=== PATIENT | female | born 1955 | race Caucasian/White ===

== ENCOUNTER 2017-07-14 10:20 | Inpatient (IN) ==
--- NOTE | 2017-07-14 12:05 | Emergency Department Note ---
Disposition Clinical Impression: Elevated blood pressure reading Headache Qualifiers: Headache type: unspecified Headache chronicity pattern: unspecified pattern Intractability: not intractable Qualified Code(s): R51 - Headache Chest pain Qualifiers: Chest pain type: unspecified Qualified Code(s): R07.9 - Chest pain, unspecified Disposition: Admitted As Inpatient Condition: Fair Referrals: Eliel Lomeli MD [Primary Care Provider] - Forms: ED Satisfaction Letter Time of Disposition: 13:51 General Adult HPI - General Chief complaint: ED Headache Stated complaint: "sent from ENT high BP" Time Seen by Provider: 07/14/17 10:55 Source: patient Mode of arrival: ambulatory Limitations: no limitations Nursing Notes Reviewed: Yes Vital Signs Reviewed: Yes - History of Present Illness HPI Narrative: 61-year-old female with history of hypertension and recent epistaxis presents for evaluation of elevated blood pressure. Patient was sent over from the ENT office due to hypertension. Patient was noted to be 190 systolic. Patient states she has been out of her blood pressure medication over the past week and recently got the prescription filled yesterday. Patient's had a couple doses of lisinopril. Patient also notes that she has been having constant headaches as well as right eye pain with blurry vision. Patient denies history of glaucoma or diabetes. Patient states her headache is primarily around her for head and her eye. Patient denies any nausea or vomiting. Patient states that she has not seen her primary care doctor for a while. Notes She has an appointment in October. Patient also notes she has had some epigastric pain over the past couple days which currently is resolved. Pain Scale: 7 - Related Data Home Medications Medication Instructions Recorded Confirmed Acetaminophen [Tylenol] 325 - 650 mg PO TID PRN 12/04/15 07/14/17 Cyclobenzaprine [Flexeril] 10 mg PO HS PRN 12/04/15 07/14/17 Losartan [Cozaar] 25 mg PO DAILY 12/04/15 07/14/17 Escitalopram [Lexapro] 10 mg PO DAILY 12/19/15 07/14/17 Gabapentin [Neurontin] 300 mg PO HS 12/19/15 07/14/17 Dexlansoprazole [Dexilant] 60 mg PO DAILY 02/07/16 07/14/17 Metoprolol [Lopressor] 12.5 mg PO BID 02/07/16 07/14/17 Previous Rx's Medication Instructions Recorded Ferrous Sulfate 325 mg PO BIDWM #60 tablet 12/21/15 Allergies Allergy/AdvReac Type Severity Reaction Status Date / Time No Known Allergies Allergy Verified 07/10/17 06:36 All systems ED: reviewed and negative except as stated. Constitutional: Denies: fever Cardiovascular: Reports: chest pain Respiratory: Denies: cough, dyspnea Gastrointestinal: Denies: abdominal pain, nausea, vomiting Past Medical History - Past Medical History Source: patient Medical history: Reports: arthritis, GERD, hypertension Surgical history: Reports: knee replacement Psychiatric history: Reports: anxiety, depression - Social History Smoking Status: Never smoker Smokeless Tobacco Status: No Alcohol use: Reports: none Drug use: Reports: none Physical Exam - General Limitations: no limitations General appearance: alert, in no apparent distress - Head Head exam: atraumatic, normocephalic, normal inspection - Eye Eye exam: Present: normal appearance, PERRL, EOMI, nystagmus (BILATERAL HORIZONTAL NYSTAGMUS). Absent: miosis, mydriasis - ENT ENT exam: normal exam - Neck Neck exam: Present: normal inspection - Chest Chest inspection: Present: normal inspection, symmetric chest wall rise - Respiratory Respiratory exam: Present: normal lung sounds bilaterally. Absent: respiratory distress - Cardiovascular Cardiovascular exam: Present: regular rate, normal rhythm. Absent: systolic murmur - Abdominal Exam Abdominal exam: Present: soft, Non-Tender - Extremities Exam Extremities exam: Present: normal inspection. Absent: pedal edema - Back Exam Back exam: Present: normal inspection - Neurological Exam Neurological exam: Present: alert, oriented X3, CN II-XII intact - Expanded Neurological Exam Patient oriented to: Present: person, place, time Speech: Present: fluid speech Cranial nerves: EOM function (II, III, IV, ): Normal, facial sensation (V): Normal, facial palsy (VII): Normal, spinal accessory function (XI): Normal, tongue deviation (XII): Normal Motor strength - LUE: 5/5 Motor strength - RUE: 5/5 Motor strength - LLE: 5/5 Motor strength - RLE: 5/5 Coma Scale Eye Opening: Spontaneous Coma Scale Motor Response: Obeys Commands Coma Scale Verbal Response: Oriented Coma Scale Total: 15 - Skin Skin exam: Present: warm, dry, intact, normal color Course Course Narrative: Patient seen and examined. Patient's in no acute distress. Patient will get basic labs as well as screening cardiopulmonary processes EKG, chest x-ray troponin. Patient also get a head CT. Concerns the patient's had uncontrolled hypertension recently. Patient did not get any recent evaluation during her prior ED visit. Disposition pending. Vital Signs Temperature 97.4 F L 07/14/17 10:21 Pulse Rate 81 07/14/17 10:21 Respiratory Rate 18 07/14/17 10:21 Blood Pressure 163/90 07/14/17 10:21 O2 Sat by Pulse Oximetry 97 07/14/17 10:21 Temperature 97.4 F L 07/14/17 10:21 Pulse Rate 81 07/14/17 10:21 Respiratory Rate 18 07/14/17 10:21 Blood Pressure 163/90 07/14/17 10:21 O2 Sat by Pulse Oximetry 97 07/14/17 10:21 Oxygen Delivery Oxygen Delivery Room Air Medical Decision Making - MDM Narrative Medical decision making narrative: 61-year-old female persists for evaluation of elevated blood pressure. Secondarily the patient's been cleaning of chest pain over the past couple days. Currently asymptomatic at time of evaluation. Patient's also been having a headache as well as blurry vision out of her right eye. Patient has no specific neurologic deficits. Patient's head CT shows white matter ischemic changes. Patient was given aspirin. Patient's blood pressure improved during the ED course without any specific interventions. Patient had basic lab work obtained troponins negative nonischemic EKG. Concerns the patient has not had a thorough evaluation for neurologic complaints and possible TIA. Patient's NIH of 0. Patient's will be admitted to the hospital service for optimize medical management further evaluation of CVA TIA and chest pain. - Lab Data Lab results reviewed: Yes I reviewed the patient's lab results. Result diagrams: 07/14/17 12:51 07/14/17 12:51 Lab Results 07/14/17 07/14/17 07/14/17 Range/Units 12:51 12:51 12:51 WBC 6.9 (4.3-11.1) K/mcL RBC 4.82 (3.82-4.97) M/mcL Hgb 14.1 (11.5-15.4) g/dL Hct 43.1 (35.3-44.9) % MCV 89.4 (83.0-100.0) fL MCH 29.3 (28.0-33.3) pg MCHC 32.7 (31.6-35.5) g/dL RDW 14.3 (11.5-14.5) % Plt Count 271 (140-400) K/mcL MPV 9.3 L (9.4-12.4) fL Immature Gran % 0.3 (0-4) % Seg Neutrophils % 75.1 % Lymphocytes % 16.7 % Monocytes % 4.9 % Eosinophils % 2.3 % Basophils % 0.7 % Neutrophils # 5.2 (1.6-8.9) K/mcL Lymphocytes # 1.2 (0.6-4.6) K/mcL Monocytes # 0.3 (0.0-1.3) K/mcL Eosinophils # 0.2 (0.0-0.6) K/mcL Basophils # 0.1 (0.0-0.2) K/mcL PT 11.3 (9.4-12.1) Seconds INR 1.1 Sodium 137 (136-145) mEq/L Potassium 4.1 (3.5-5.1) mEq/L Chloride 102 (98-107) mEq/L Carbon Dioxide 30 H (23-29) mEq/L BUN 15 (8-23) mg/dL Creatinine 0.84 (0.60-1.20) mg/dL Est GFR ( Amer) > 60 (> 60) Est GFR (Non-Af Amer) > 60 (> 60) BUN/Creatinine Ratio 18 (6-26) Glucose 108 H (70-105) mg/dL Calculated Osmolality 285 (280-300) Calcium 10.0 (8.6-10.3) mg/dL Troponin I (< 0.04) ng/mL B-Natriuretic Peptide (Less than 100) pg/mL 07/14/17 07/14/17 Range/Units 12:51 12:51 WBC (4.3-11.1) K/mcL RBC (3.82-4.97) M/mcL Hgb (11.5-15.4) g/dL Hct (35.3-44.9) % MCV (83.0-100.0) fL MCH (28.0-33.3) pg MCHC (31.6-35.5) g/dL RDW (11.5-14.5) % Plt Count (140-400) K/mcL MPV (9.4-12.4) fL Immature Gran % (0-4) % Seg Neutrophils % % Lymphocytes % % Monocytes % % Eosinophils % % Basophils % % Neutrophils # (1.6-8.9) K/mcL Lymphocytes # (0.6-4.6) K/mcL Monocytes # (0.0-1.3) K/mcL Eosinophils # (0.0-0.6) K/mcL Basophils # (0.0-0.2) K/mcL PT (9.4-12.1) Seconds INR Sodium (136-145) mEq/L Potassium (3.5-5.1) mEq/L Chloride (98-107) mEq/L Carbon Dioxide (23-29) mEq/L BUN (8-23) mg/dL Creatinine (0.60-1.20) mg/dL Est GFR ( Amer) (> 60) Est GFR (Non-Af Amer) (> 60) BUN/Creatinine Ratio (6-26) Glucose (70-105) mg/dL Calculated Osmolality (280-300) Calcium (8.6-10.3) mg/dL Troponin I < 0.03 (< 0.04) ng/mL B-Natriuretic Peptide 118 H (Less than 100) pg/mL - Radiology Data Radiology results reviewed: Yes I reviewed the patient's radiology results. Head CT 07/14/17 12:01 IMPRESSION: No acute intracranial abnormality. Mild chronic small vessel white matter ischemic changes. D/ / Jose Luis Plasencia MD / Jose Luis Plasencia MD Interpreting Provider: Jose Luis Plasencia MD Chest X-Ray 07/14/17 12:06 IMPRESSION: No acute cardiopulmonary disease. Retrocardiac opacity compatible with hiatal hernia. D/ / Xenia Norton MD / Xenia Norton MD Interpreting Provider: Xenia Norton MD - EKG Data EKG #1 EKG attestation: Yes I reviewed and interpreted this EKG. EKG shows normal: sinus rhythm Rate: normal Rhythm: NSR [place]/QRS: normal Interpretation: no acute changes, nonspecific ST-T wave changes S.B.A.RLana - S.Jen.AEmma Situation: Demographics Background: Presenting Complaint Assessment: Vital Signs, Patient/Family Expectation Recommendation: Barrier(s) to disposition, Recommendation based on pending studies, treatments, or consults S.B.A.Destinee Report Given to: Dr. Darinel Fajardo Repor Time: 14:22
--- NOTE | 2017-07-14 13:07 | Emergency Department Note ---
Disposition Clinical Impression: Elevated blood pressure reading Disposition: Admitted As Inpatient Referrals: Eliel Lomeli MD [Primary Care Provider] - Forms: ED Satisfaction Letter General Adult HPI - General Chief complaint: ED Headache Stated complaint: "sent from ENT high BP" Time Seen by Provider: 07/14/17 10:55 Source: patient Mode of arrival: ambulatory Limitations: no limitations - History of Present Illness Pain Scale: 7 - Related Data Home Medications Medication Instructions Recorded Confirmed Acetaminophen [Tylenol] 325 - 650 mg PO TID PRN 12/04/15 02/07/16 Cyclobenzaprine [Flexeril] 10 mg PO HS PRN 12/04/15 02/07/16 Losartan [Cozaar] 25 mg PO DAILY 12/04/15 02/07/16 Omeprazole [PriLOSEC] 40 mg PO BID 12/04/15 02/07/16 Escitalopram [Lexapro] 10 mg PO DAILY 12/19/15 02/07/16 Gabapentin [Neurontin] 300 mg PO HS 12/19/15 02/07/16 Dexlansoprazole [Dexilant] 60 mg PO DAILY 02/07/16 02/07/16 Metoprolol [Lopressor] 12.5 mg PO BID 02/07/16 02/07/16 Previous Rx's Medication Instructions Recorded Ferrous Sulfate 325 mg PO BIDWM #60 tablet 12/21/15 Mupirocin [Bactroban Oint] 1 appl TP BID #22 g 02/20/16 cephALEXin [Keflex] 500 mg PO TID #30 capsule 02/20/16 cephALEXin [Keflex] 500 mg PO QID #15 capsule 07/10/17 Allergies Allergy/AdvReac Type Severity Reaction Status Date / Time No Known Allergies Allergy Verified 07/10/17 06:36 Constitutional: Denies: fever Cardiovascular: Reports: chest pain Respiratory: Denies: cough, dyspnea Gastrointestinal: Denies: abdominal pain, nausea, vomiting Past Medical History - Past Medical History Medical history: Reports: arthritis, GERD, hypertension Surgical history: Reports: knee replacement Psychiatric history: Reports: anxiety, depression - Social History Smoking Status: Never smoker Smokeless Tobacco Status: No Alcohol use: Reports: none Drug use: Reports: none Physical Exam - General Limitations: no limitations General appearance: alert, in no apparent distress Course Vital Signs Temperature 97.4 F L 07/14/17 10:21 Pulse Rate 81 07/14/17 10:21 Respiratory Rate 18 07/14/17 10:21 Blood Pressure 163/90 07/14/17 10:21 O2 Sat by Pulse Oximetry 97 07/14/17 10:21 Temperature 97.4 F L 07/14/17 10:21 Pulse Rate 81 07/14/17 10:21 Respiratory Rate 18 07/14/17 10:21 Blood Pressure 163/90 07/14/17 10:21 O2 Sat by Pulse Oximetry 97 07/14/17 10:21 Oxygen Delivery Oxygen Delivery Room Air Attestation Statement - Attestation Attestation: I examined this patient and my medical decision-making was reviewed with the Resident Physician. I agree with the documented findings, disposition and treatment plan as described except to the extent set forth below. 61 year old female prsentse to us from the ENT office for elevated blood pressures. She was 180/90s at the ENT office and is currently 160s/70s and states that she has been experiencining intermittment chest pain with exertional d yspnea and most recently developed a headache with blurrinesss to her right eye. Bedside US of the right eye shows intact retina and no papillaedema. We will contineu with HTN workup and admit to medicine.
[2017-07-14 13:13] LABS: Basophils # 0.1 K/mcL (0.0-0.2); Basophils % 0.7 %; Eosinophils # 0.2 K/mcL (0.0-0.6); Eosinophils % 2.3 %; Hematocrit 43.1 % (35.3-44.9); Hemoglobin 14.1 g/dL (11.5-15.4); Immature Granulocytes % 0.3 % (0-4); Lymphocytes # 1.2 K/mcL (0.6-4.6); Lymphocytes % 16.7 %; Mean Corpuscular HGB Conc 32.7 g/dL (31.6-35.5); Mean Corpuscular Hemoglobin 29.3 pg (28.0-33.3); Mean Corpuscular Volume 89.4 fL (83.0-100.0); Mean Platelet Volume 9.3 fL (9.4-12.4); Monocytes # 0.3 K/mcL (0.0-1.3); Monocytes % 4.9 %; Neutrophils # 5.2 K/mcL (1.6-8.9); Platelet Count 271 K/mcL (140-400); Red Blood Count 4.82 M/mcL (3.82-4.97); Red Cell Distribution Width 14.3 % (11.5-14.5); Segmented Neutrophils % 75.1 %
[2017-07-14 13:22] LABS: INR 1.1; Prothrombin Time 11.3 Seconds (9.4-12.1)
[2017-07-14 13:30] LABS: BUN/Creatinine Ratio 18 (6-26); Blood Urea Nitrogen 15 mg/dL (8-23); Carbon Dioxide 30 mEq/L (23-29); Chloride 102 mEq/L (98-107); Glucose 108 mg/dL (70-105); Osmolality,Calculated 285 (280-300); Potassium 4.1 mEq/L (3.5-5.1); Sodium 137 mEq/L (136-145); eGFR For African Americans > 60 (> 60); eGFR For Non-African Americans > 60 (> 60)
[2017-07-14] MEDS ORDERED: Aspirin 81 MG TAB.CHEW PO ONE (14:17)
[2017-07-14] MEDS ORDERED: cloNIDine HCl 0.1 MG TABLET PO ONE (14:25)
[2017-07-14] MEDS ORDERED: Naloxone 0.4 MG/ML INJ IVP PRN (15:13)
[2017-07-14] MEDS ORDERED: niCARdipine 40 MG/200 ML MLS IVC SCH (15:15)
--- NOTE | 2017-07-14 15:21 | Internal Med History&Physical ---
<Elisa Mclean - Last Filed: 07/14/17 15:54> Date of Encounter: 07/14/17 Time of Encounter: 15:17 Internal Medicine - H&P: HPI Admitted From: Home Plans for Post Hospital Care: Home History of present illness: 61-year-old female with history of hypertension and recent epistaxis presents for evaluation of elevated blood pressure. Patient was sent over from the ENT office due to hypertension. Patient was noted to be 190 systolic. Patient states she has been out of her blood pressure medication over the past week and recently got the prescription filled yesterday. Patient's had a couple doses of lisinopril. Patient also notes that she has been having constant headaches as well as right eye pain with blurry vision. Patient denies history of glaucoma or diabetes. Patient states her headache is primarily around her for head and her eye. Patient denies any nausea or vomiting. Patient states that she has not seen her primary care doctor for a while. Notes She has an appointment in October. Patient also notes she has had some epigastric pain over the past couple days which currently is resolved. Past Med Surg Social Fam HX - Past Medical History Medical history: arthritis, GERD, hypertension Psychiatric history: anxiety, depression - Past Surgical History Surgical History: knee replacement - Social History Smoking Status: Never smoker Smokeless Tobacco Status: No Alcohol use: none Drug use: none - Family History Mother Family Member Ethnicity: Non- Living Status: Hx Family Cardiac Disorders: Yes Hx Family Respiratory Disorders: No Hx Family Cancer: No Hx Family GI Disorders: No Hx Family Endocrine Disorder: No Internal Medicine - H&P: Meds Acetaminophen [Tylenol] 325 - 650 mg PO TID PRN 12/04/15 [History] Cyclobenzaprine [Flexeril] 10 mg PO HS PRN 12/04/15 [History] Losartan [Cozaar] 25 mg PO DAILY 12/04/15 [History] Escitalopram [Lexapro] 10 mg PO DAILY 12/19/15 [History] Gabapentin [Neurontin] 300 mg PO HS 12/19/15 [History] Ferrous Sulfate 325 mg PO BIDWM #60 tablet 12/21/15 [Rx] Dexlansoprazole [Dexilant] 60 mg PO DAILY 02/07/16 [History] Metoprolol [Lopressor] 12.5 mg PO BID 02/07/16 [History] 3 Allergy/AdvReac Type Severity Reaction Status Date / Time No Known Allergies Allergy Verified 07/10/17 06:36 All Systems PM: A 10-system review of systems was performed and is negative for pertinent findings except as documented above in the HPI. - Constitutional Constitutional: no chills, no fever(s), no night sweats - EENT Eyes: as per HPI, no change in vision, no discharge, no pain, no photophobia Ears: no ear discharge, no ear pain, no tinnitus Nose, mouth and throat: no dysphagia, no nasal discharge, no neck pain, no sore throat - Cardiovascular Cardiovascular ROS IM: no chest pain, no diaphoresis, no dyspnea, no lightheadedness, no palpitations, no syncope - Respiratory Respiratory: no cough, no dyspnea, no wheezing, no excessive phlegm production - Gastrointestinal Gastrointestinal: no abdominal pain, no diarrhea, no hematemesis, no hematochezia, no melena, no nausea, no vomiting - Genitourinary Genitourinary: no change in urinary stream, no dysuria, no flank pain, no hematuria - Musculoskeletal Musculoskeletal ROS IM: no numbness, no tingling - Integumentary Integumentary IM: no rash, no unusual bruising - Neurological Neurological ROS: no confusion, no convulsions, no focal weakness, no numbness, no tingling, no tremor(s) - Hematologic/Lymphatic Hematologic/Lymphatic: no easy bruising - Constitutional Vitals: Temp Pulse Resp BP Pulse Ox 97.4 F L 89 16 216/100 98 07/14/17 10:21 07/14/17 14:26 07/14/17 14:26 07/14/17 14:26 07/14/17 14:26 General appearance: Present: A&O X 2 - Head Head exam: Present: atraumatic, normocephalic - Eye Eye exam: Present: PERRL, conjuntiva pink, sclera anicteric Pupils: Present: PERRL - Neck Neck exam general surgery: Present: supple, trachea midline. Absent: lymphadenopathy - Respiratory Respiratory exam: Present: CTAB. Absent: accessory muscle use, rales, rhonchi, wheezes - Cardiovascular Cardiovascular exam: Present: RRR, +S1, +S2. Absent: diastolic murmur, gallop, rubs, systolic murmur - GI/Abdominal GI/Abdominal exam: Present: normal bowel sounds, soft, no peritoneal signs. Absent: distended, tenderness - Extremities Exam Extremities exam: Present: warm, radial pulses palpable and symmetrical. Absent : calf tenderness, cyanotic, pedal edema - Neurological Exam Neurological exam: Present: CN II-XII intact, oriented X3, no focal deficits. Absent: pronater drift, facial droop, speech deficit - Skin Skin exam: Present: dry, intact Internal Med - H&P Results - Labs CBC & Chem 7: 07/14/17 12:51 07/14/17 12:51 Labs: Short CBC 07/14/17 Range/Units 12:51 WBC 6.9 (4.3-11.1) K/mcL Hgb 14.1 (11.5-15.4) g/dL Hct 43.1 (35.3-44.9) % Plt Count 271 (140-400) K/mcL Neutrophils # 5.2 (1.6-8.9) K/mcL BMP 07/14/17 12:51 Sodium 137 Potassium 4.1 Chloride 102 Carbon Dioxide 30 H BUN 15 Creatinine 0.84 Glucose 108 H Calcium 10.0 Cardiac Enzymes 07/14/17 Range/Units 12:51 Troponin I < 0.03 (< 0.04) ng/mL - Impressions ITS Impressions Head CT 07/14/17 12:01 IMPRESSION: No acute intracranial abnormality. Mild chronic small vessel white matter ischemic changes. D/ / Jose Luis Plasencia MD / Jose Luis Plasencia MD Interpreting Provider: Jose Luis Plasencia MD Chest X-Ray 07/14/17 12:06 IMPRESSION: No acute cardiopulmonary disease. Retrocardiac opacity compatible with hiatal hernia. D/ / Xenia Norton MD / Xenia Norton MD Interpreting Provider: Xenia Norton MD - Assessment and plan (1) Hypertensive emergency Current Visit: Yes Status: Acute Assessment and plan: - SBP at ED >210, also c/o headcahe and nose bleeding. - received one dose of clonidine at ED, will start on cardene drip, continue home BP meds and adjust dose to wean off Cardene drip. - renal artery doppler to r/o stenosis. TSH, free cortisol and metanephrine ordered to r/o other cause of secondary HTN. (2) Epistaxis Current Visit: Yes Status: Acute Assessment and plan: - packed at ENT office, control BP. (3) Headache Current Visit: Yes Status: Acute Assessment and plan: - high BP related, control BP as above. Qualifiers: Headache type: unspecified Headache chronicity pattern: unspecified pattern Intractability: not intractable Qualified Code(s): R51 - Headache - Time Spent With Patient Total time spent is greater than 50% in coordination of care (as documented) at patient's floor/unit and/or counseling patient: Greater than 35 minutes <Filippo House - Last Filed: 07/14/17 18:34> Date of Encounter: 07/14/17 Internal Medicine - H&P: HPI History of present illness: Ms. Berman is a 61 year old female All Systems PM: A 10-system review of systems was performed and is negative for pertinent findings except as documented above in the HPI. - Constitutional Vitals: Temp Pulse Resp BP Pulse Ox 97.4 F L 84 18 177/89 97 07/14/17 10:21 07/14/17 17:37 07/14/17 17:42 07/14/17 17:42 07/14/17 17:37 Internal Med - H&P Results - Labs CBC & Chem 7: 07/14/17 12:51 07/14/17 12:51 - Attending Attestation I examined this patient and my medical decision-making was reviewed with the Resident Physician. I agree with the documented findings, disposition and treatment plan as described except to the extent set forth below. - Time Spent With Patient Total time spent is greater than 50% in coordination of care (as documented) at patient's floor/unit and/or counseling patient:
[2017-07-14 16:08] LABS: Thyroid Stimulating Hormone 2.272 mcIU/mL (0.340-5.600)
[2017-07-14] MEDS: Acetaminophen 325 MG TABLET PO PRN ×2 (18:21→22:30)
[2017-07-14] MEDS: Gabapentin 300 MG CAPSULE PO SCH (22:30)
[2017-07-15 06:56] LABS: BUN/Creatinine Ratio 18 (6-26); Blood Urea Nitrogen 14 mg/dL (8-23); Calcium 9.4 mg/dL (8.6-10.3); Carbon Dioxide 24 mEq/L (23-29); Chloride 106 mEq/L (98-107); Glucose 124 mg/dL (70-105); Osmolality,Calculated 282 (280-300); Potassium 4.3 mEq/L (3.5-5.1); Sodium 135 mEq/L (136-145); eGFR For African Americans > 60 (> 60); eGFR For Non-African Americans > 60 (> 60)
[2017-07-15 07:06] LABS: Basophils % 0.6 %; Eosinophils # 0.1 K/mcL (0.0-0.6); Eosinophils % 2.2 %; Hematocrit 39.5 % (35.3-44.9); Hemoglobin 12.8 g/dL (11.5-15.4); Immature Granulocytes % 0.2 % (0-4); Lymphocytes # 1.3 K/mcL (0.6-4.6); Mean Corpuscular HGB Conc 32.4 g/dL (31.6-35.5); Mean Corpuscular Hemoglobin 29.6 pg (28.0-33.3); Mean Corpuscular Volume 91.4 fL (83.0-100.0); Mean Platelet Volume 9.8 fL (9.4-12.4); Monocytes # 0.4 K/mcL (0.0-1.3); Monocytes % 7.7 %; Neutrophils # 3.2 K/mcL (1.6-8.9); Platelet Count 252 K/mcL (140-400); Red Blood Count 4.32 M/mcL (3.82-4.97); Red Cell Distribution Width 14.3 % (11.5-14.5); Segmented Neutrophils % 63.3 %
--- NOTE | 2017-07-15 14:48 | Internal Med Progress Note ---
Date of Encounter: 07/15/17 Time of Encounter: 14:40 - Assessment and plan (1) Hypertensive emergency Current Visit: Yes Status: Acute Assessment and plan: - Presented with headache and nosebleeding, was found BP significantly elevated with SBP more than 220. - Unclear the etiology, TSH and free cortisol were normal. Serum metanephrine result pending. - Occurred after ENT placed nasal packing, suspected vasoconstrict agent such as Afrin was used to control epistaxis, which could cause acute elevated blood pressure. - Treated as hypertensive emergency with Cardene drip, drip off this morning. - Losartan and metoprolol home dose doubled. - BP well controlled now with SBP between 120-150. - If remain controlled, will dc in am. (2) Epistaxis Current Visit: Yes Status: Acute Assessment and plan: - packed at ENT office. No bleeding now. (3) Headache Current Visit: Yes Status: Resolved Qualifiers: Headache type: unspecified Headache chronicity pattern: unspecified pattern Intractability: not intractable Qualified Code(s): R51 - Headache - Time Spent With Patient Total time spent is greater than 50% in coordination of care (as documented) at patient's floor/unit and/or counseling patient: Greater than 35 minutes - Subjective Interval history: resting in bed, has no complaints. No headache or nose bleeding. - Constitutional Vitals: Temp Pulse Resp BP Pulse Ox 97.6 F 69 16 125/81 99 07/15/17 08:09 07/15/17 11:57 07/15/17 11:57 07/15/17 13:09 07/15/17 11:57 General appearance: Present: A&O X 2 Exam: PHYSICAL EXAMINATION: GENERAL APPEARANCE: The patient is alert, oriented and in no acute distress. HEENT: Head is normocephalic. The sinuses are nontender. Pupils are equal and reactive. The nares are patent. Oropharynx clear without lesions. NECK: Supple without lymphadenopathy. HEART: Regular rate and rhythm. LUNGS: No crackles or wheezes are heard. ABDOMEN: Soft, nontender, nondistended with good bowel sounds heard. Inguinal area is normal. EXTREMITIES: Without cyanosis, clubbing or edema. NEUROLOGICAL: Gross nonfocal. SKIN: Warm and dry without any rash. Internal Medicine: Result - Labs CBC & Chem 7: 07/15/17 06:21 07/15/17 06:21 Labs: Short CBC 07/15/17 Range/Units 06:21 WBC 5.1 (4.3-11.1) K/mcL Hgb 12.8 (11.5-15.4) g/dL Hct 39.5 (35.3-44.9) % Plt Count 252 (140-400) K/mcL Neutrophils # 3.2 (1.6-8.9) K/mcL BMP 07/15/17 06:21 Sodium 135 L Potassium 4.3 Chloride 106 Carbon Dioxide 24 BUN 14 Creatinine 0.80 Glucose 124 H Calcium 9.4 - ABG Interpretation ABG results: PT/INR, D-dimer PT 11.3 Seconds (9.4-12.1) 07/14/17 12:51 - VTE Documentation of Mechanical Device: Intermittent pneumatic compression device Consult Discharge Plan - Plan Referrals: Eliel Lomeli MD [Primary Care Provider] -
[2017-07-15] MEDS: Gabapentin 300 MG CAPSULE PO SCH ×2 (21:15→22:58)
--- NOTE | 2017-07-15 22:55 | Electrocardiograph Report ---
[employer] Test Date: 2017-07-14 Pat Name: Peyton Berman Department: 104 Room: [facility] Gender: F Stain Maker: : [id number] Requested By: Joe Cox Order Number: [id number] Reading MD: Magen Cote Measurements Intervals [place] Rate: 77 P: 34 [place]: 164 QRS: 9 QRSD: 97 T: 57 QT: 383 QTc: 414 Interpretive Statements SINUS RHYTHM MODERATE VOLTAGE CRITERIA FOR LVH, CONSIDER NORMAL VARIANT NONSPECIFIC T-WAVE ABNORMALITY WARNING: DATA QUALITY MAY AFFECT INTERPRETATION Electronically Signed On 07-15-2017 22:54:35 EDT by Magen Cote
[2017-07-16 10:56] VITALS: BP 122/75
--- NOTE | 2017-07-16 14:16 | Discharge Summary ---
- NOTES TO OUTPATIENT PROVIDER Notes to Outpatient Provider: f/u with PCP within a week. Date of Encounter: 07/16/17 Time of Encounter: 14:14 - Discharge Diagnosis (1) Hypertensive emergency Priority: Primary Status: Acute (2) Epistaxis Priority: Secondary Status: Acute (3) Headache Priority: Primary Status: Resolved Qualifiers: Headache type: unspecified Headache chronicity pattern: unspecified pattern Intractability: not intractable Qualified Code(s): R51 - Headache Hospital course: Ms. Berman is a 61 year old female past medical history of hypertension presented from the ENT physician office for elevated blood pressure. She had a nosebleed which was packed by ENT physician in his office. Meanwhile she was found to have severe hypertension and was sent to the ED for further evaluation. Her blood pressure was more than 220/110 upon arrival to the ED. She also has associated headache. Hypertensive emergency was diagnosed and she was started on nicardipine drip. Her blood pressure was gradually reduced and nicardipine drip was DC'd on the second hospital day. Her home blood pressure medicine dose was appropriately adjusted so that her BP was maintained less than 140 before discharge. She will be discharged home today with follow-up with PCP within a week. Lab test of serum metanephrine was sent but results still pending. Tests for free cortisol and TSH was normal. The pending test result will fax to PCPs office once available. Discharge discussed with: patient Time spent discussing smoking cessation with patient: more than 10 minutes - Time Spent with Patient Total time spent providing and/or coordinating discharge services: Greater than 30 minutes - Discharge Medications Home Medications: Acetaminophen [Tylenol] 325 - 650 mg PO TID PRN 12/04/15 [History] Cyclobenzaprine [Flexeril] 10 mg PO HS PRN 12/04/15 [History] Escitalopram [Lexapro] 10 mg PO DAILY 12/19/15 [History] Gabapentin [Neurontin] 300 mg PO HS 12/19/15 [History] Ferrous Sulfate 325 mg PO BIDWM #60 tablet 12/21/15 [Rx] Dexlansoprazole [Dexilant] 60 mg PO DAILY 02/07/16 [History] Losartan [Cozaar] 75 mg PO DAILY #0 tablet 07/16/17 [Rx] Metoprolol [Lopressor] 25 mg PO BID tablet 07/16/17 [Rx] Allergies/Adverse Reactions: 3 Allergy/AdvReac Type Severity Reaction Status Date / Time No Known Allergies Allergy Verified 07/10/17 06:36 Date of admission: 07/14/17 17:21 Primary care physician: Eliel Lomeli MD Anticipated date of discharge: 07/16/17 - Constitutional Vitals: Temp Pulse Resp BP Pulse Ox 98.3 F 56 15 122/75 96 07/16/17 10:55 07/16/17 10:55 07/16/17 10:55 07/16/17 10:55 07/16/17 10:55 General appearance: Present: A&O X 2 Exam: PHYSICAL EXAMINATION: GENERAL APPEARANCE: The patient is alert, oriented and in no acute distress. HEENT: Head is normocephalic. The sinuses are nontender. Pupils are equal and reactive. The nares are patent. Oropharynx clear without lesions. NECK: Supple without lymphadenopathy. HEART: Regular rate and rhythm. LUNGS: No crackles or wheezes are heard. ABDOMEN: Soft, nontender, nondistended with good bowel sounds heard. Inguinal area is normal. EXTREMITIES: Without cyanosis, clubbing or edema. NEUROLOGICAL: Gross nonfocal. SKIN: Warm and dry without any rash. - Patient Status Disposition: Home, Self-Care Condition: Fair Functional capacity at discharge: independent ambulation Overall status at discharge: patient is back to baseline - Discharge Instructions Follow Up With: Eliel Lomeli MD [Primary Care Provider] - - Diet and Activity Activity: increase activity as tolerated Diet: low fat, low cholesterol, low salt diet - VTE Documentation of Mechanical Device: Intermittent pneumatic compression device
[2017-07-18 16:56] LABS: Metanephrine, Plasma 0.11 nmol/L (0.00-0.49)
== END 2017-07-16 18:12 | disposition home or self-care (01) | DRG 305 ==
LOC: EMEROO 10:20 → 2SOUTHHOLD 17:21 → 3NENU 07-15 16:50
PROVIDERS: ADMIT Internal Medicine Cardiovascular Disease; ATTEND Internal Medicine Cardiovascular Disease

== ENCOUNTER 2019-08-04 21:43 | Observation (INO) ==
[2019-08-04] MEDS ORDERED: Isovue-370 500 ML BOTTLE IVP ONE (21:51)
[2019-08-04 22:29] LABS: Basophils % 0.3 %; Eosinophils % 0.4 %; Hematocrit 38.6 % (35.3-44.9); Hemoglobin 12.3 g/dL (11.5-15.4); Immature Granulocytes % 0.3 % (0-4); Lymphocytes # 0.5 K/mcL (0.6-4.6); Lymphocytes % 7.1 %; Mean Corpuscular HGB Conc 31.9 g/dL (31.6-35.5); Mean Platelet Volume 9.7 fL (9.4-12.4); Monocytes # 0.3 K/mcL (0.0-1.3); Monocytes % 3.7 %; Neutrophils # 6.7 K/mcL (1.6-8.9); Platelet Count 250 K/mcL (140-400); Red Blood Count 4.24 M/mcL (3.82-4.97); Red Cell Distribution Width 13.4 % (11.5-14.5); Segmented Neutrophils % 88.2 %; White Blood Count 7.6 K/mcL (4.3-11.1)
[2019-08-04 22:49] LABS: Alanine Aminotransferase 64 Units/L (7-52); Albumin/Globulin Ratio 1.3 (1.1-2.2); Alkaline Phosphatase 194 Units/L (34-104); Aspartate Amino Transferase 91 Units/L (13-39); BUN/Creatinine Ratio 17 (6-26); Bilirubin,Direct 0.5 mg/dL (0.0-0.2); Bilirubin,Indirect 0.5 mg/dL (0.0-1.0); Blood Urea Nitrogen 13 mg/dL (8-23); Calcium 8.8 mg/dL (8.6-10.3); Carbon Dioxide 21 mEq/L (23-29); Chloride 105 mEq/L (98-107); Globulin 3.2 g/dL (2.4-3.5); Glucose 150 mg/dL (70-105); Lipase 28 Units/L (11-82); Osmolality,Calculated 285 (280-300); Potassium 3.4 mEq/L (3.5-5.1); Sodium 136 mEq/L (136-145); Total Protein 7.2 g/dL (6.4-8.9); eGFR For African Americans > 60 (> 60); eGFR For Non-African Americans > 60 (> 60)
[2019-08-04] MEDS ORDERED: Morphine Sulfate 2 MG/ML SYRINGE IVP ONE (23:32)
[2019-08-04] MEDS ORDERED: 0.9 % Sodium Chloride 1,000 ML IVC ONE (23:32)
[2019-08-05 00:22] LABS: Bilirubin,Urine Negative (Negative); Blood,Urine Negative (Negative); Clarity,Urine Clear (Clear); Color,Urine Yellow (Yellow); Glucose,Urine (UA) Normal (Normal); Ketones,Urine Negative (Negative); Leukocyte Esterase,Urine Negative (Negative); Nitrite,Urine Negative (Negative); PH,Urine 6.5 pH Units (5.0-8.0); Protein,Urine Negative (Neg-Trace); Specific Gravity,Urine > 1.030 (1.010-1.025); Urobilinogen,Urine Normal (Normal)
[2019-08-05] MEDS ORDERED: Piperacillin/Tazobactam 3.375 GM in Water for inj. (sterile) 20 ML IVP ONE (00:24)
[2019-08-05] MEDS ORDERED: Naloxone 0.4 MG/ML INJ IVP PRN ×2 (03:37→20:29)
[2019-08-05] MEDS ORDERED: 0.9 % Sodium Chloride 1,000 ML IVC SCH (05:30)
[2019-08-05] MEDS ORDERED: Ondansetron 4 MG/2 ML VIAL IVP PRN ×2 (05:30→20:29)
[2019-08-05 06:11] LABS: Hematocrit 37.1 % (35.3-44.9); Mean Corpuscular HGB Conc 32.3 g/dL (31.6-35.5); Mean Corpuscular Hemoglobin 29.3 pg (28.0-33.3); Mean Corpuscular Volume 90.5 fL (83.0-100.0); Mean Platelet Volume 9.7 fL (9.4-12.4); Platelet Count 247 K/mcL (140-400); Red Cell Distribution Width 13.4 % (11.5-14.5); White Blood Count 5.5 K/mcL (4.3-11.1)
[2019-08-05 06:16] LABS: INR 1.1; Prothrombin Time 12.3 Seconds (9.4-12.1)
[2019-08-05 06:18] LABS: Activated Partial Thrombo Time 28.3 Seconds (26.0-36.0)
[2019-08-05 07:10] LABS: BUN/Creatinine Ratio 13 (6-26); Blood Urea Nitrogen 9 mg/dL (8-23); Calcium 8.7 mg/dL (8.6-10.3); Carbon Dioxide 21 mEq/L (23-29); Chloride 108 mEq/L (98-107); Glucose 115 mg/dL (70-105); Osmolality,Calculated 288 (280-300); Potassium 3.4 mEq/L (3.5-5.1); Sodium 139 mEq/L (136-145); eGFR For African Americans > 60 (> 60); eGFR For Non-African Americans > 60 (> 60)
[2019-08-05] MEDS ORDERED: D5% in Water 1,000 ML IVC PRN ×2 (07:55→20:29)
[2019-08-05] MEDS ORDERED: Dextrose Gel 15 GM/37.5 ML TUBE PO PRN ×4 (07:55→20:29)
[2019-08-05] MEDS ORDERED: *HR* Dextrose 50 % in Water (Syg) 50 ML SYRINGE IVP PRN ×2 (07:55→20:29)
[2019-08-05] MEDS ORDERED: *HR* Labetalol 20 MG/4 ML SYRINGE IVP PRN ×2 (07:58→20:29)
[2019-08-05] MEDS ORDERED: 0.9 % Sodium Chloride w KCl 40 MEQ/1,000 ML MLS IVC SCH (08:00)
[2019-08-05] MEDS ORDERED: Ringers Solution, Lactated 1,000 ML IVC SCH (08:00)
[2019-08-05] MEDS: Piperacillin/Tazobactam 3.375 GM in 0.9 % Sodium Chloride Mini Bag 100 ML IVPB SCH ×3 (08:57→23:15)
[2019-08-05] MEDS: Insulin LISPRO 300 UNITS/3 ML VIAL SQ SCH ×2 (12:30→21:14)
[2019-08-05] MEDS ORDERED: *HR* Meperidine 25 MG/ML SYRINGE IVP PRN ×2 (16:10→20:29)
[2019-08-05] MEDS ORDERED: Dexamethasone 4 MG/ML VIAL IVP ONE ×2 (16:10→20:29)
[2019-08-05] MEDS ORDERED: *HR* OxyCODONE Immed Rel 5 MG TABLET PO PRN ×2 (16:10→20:29)
[2019-08-05] MEDS ORDERED: *HR* Propofol 200 MG/20 ML VIAL IVP ONE (16:31)
[2019-08-05] MEDS ORDERED: *HR* FentaNYL (PF) 100 MCG/2 ML VIAL ONE (16:31)
[2019-08-05] MEDS ORDERED: CefOXitin 1,000 MG VIAL ONE (16:59)
[2019-08-05] MEDS ORDERED: EPHEDrine 50 MG/ML VIAL ONE (18:37)
[2019-08-05] MEDS: *HR* FentaNYL (PF) 100 MCG/2 ML VIAL IVP PRN ×2 (19:19→19:51)
[2019-08-05] MEDS: *HR* Promethazine 25 MG/ML VIAL IVP PRN ×2 (19:23→19:35)
[2019-08-05] MEDS ORDERED: Ipratropium/Albuterol Neb 3 ML IH ONE (19:32)
[2019-08-05] MEDS ORDERED: Ipratropium/Albuterol Neb 3 ML ONE (19:33)
[2019-08-05] MEDS ORDERED: Ketorolac 15 MG/ML VIAL IVP STA (19:57)
[2019-08-05] MEDS ORDERED: *HR* FentaNYL (PF) 100 MCG/2 ML VIAL IVP PRN (20:29)
[2019-08-06] MEDS ORDERED: Insulin LISPRO 300 UNITS/3 ML VIAL SQ SCH
[2019-08-06 02:11] LABS: BUN/Creatinine Ratio 12 (6-26); Blood Urea Nitrogen 10 mg/dL (8-23); Carbon Dioxide 23 mEq/L (23-29); Chloride 109 mEq/L (98-107); Glucose 171 mg/dL (70-105); Magnesium 2.1 mg/dL (1.6-2.6); Osmolality,Calculated 291 (280-300); Phosphorous 2.9 mg/dL (2.7-4.5); Sodium 139 mEq/L (136-145); eGFR For African Americans > 60 (> 60); eGFR For Non-African Americans > 60 (> 60)
[2019-08-06 06:26] VITALS: BP 139/65
[2019-08-06] MEDS: Piperacillin/Tazobactam 3.375 GM in 0.9 % Sodium Chloride Mini Bag 100 ML IVPB SCH (08:56)
== END 2019-08-06 11:32 | disposition home or self-care (01) ==
LOC: 3ANU 21:43 → EMEROOARM 21:43 → SUATTDRO 08-05 00:53 → 3ANU 08-05 01:15
PROVIDERS: ADMIT Internal Medicine; ATTEND Internal Medicine

== ENCOUNTER 2019-09-06 08:47 | Inpatient (IN) ==
[2019-09-06] MEDS ORDERED: CeFAZolin Syr 2,000MG/20 ML 2,000 MG/20 ML SYRINGE IVPB ONE (09:11)
[2019-09-06] MEDS ORDERED: Ringers Solution, Lactated 1,000 ML IVC SCH (09:15)
[2019-09-06] MEDS ORDERED: Acetaminophen IV 1,000 MG/100 ML INFUS..BTL IVPB ONE (09:48)
[2019-09-06] MEDS ORDERED: Gabapentin 300 MG CAPSULE PO ONE (09:48)
[2019-09-06] MEDS ORDERED: Famotidine 20 MG/2 ML VIAL IVP ONE (09:48)
[2019-09-06] MEDS ORDERED: Ondansetron 4 MG/2 ML VIAL IVP ONE (09:49)
[2019-09-06] MEDS ORDERED: *HR* Labetalol 20 MG/4 ML SYRINGE IVP PRN (09:49)
[2019-09-06] MEDS ORDERED: *HR* OxyCODONE Immed Rel 5 MG TABLET PO PRN (09:49)
[2019-09-06] MEDS ORDERED: *HR* Promethazine 25 MG/ML VIAL IVP PRN (09:49)
[2019-09-06] MEDS ORDERED: *HR* FentaNYL (PF) 100 MCG/2 ML VIAL ONE ×2 (10:21→15:38)
[2019-09-06] MEDS ORDERED: Ondansetron 4 MG/2 ML VIAL ONE (10:23)
[2019-09-06] MEDS ORDERED: *HR* Rocuronium Bromide 50 MG/5 ML VIAL ONE ×2 (10:23→14:58)
[2019-09-06] MEDS ORDERED: Dexamethasone 4 MG/ML VIAL ONE (10:23)
[2019-09-06] MEDS ORDERED: Lidocaine -MPF 2% 2 ML VIAL ONE (10:23)
[2019-09-06] MEDS ORDERED: *HR* Propofol 200 MG/20 ML VIAL IVP ONE (10:23)
[2019-09-06] MEDS ORDERED: Bupivacaine-MPF 0.25% 10 ML VIAL ONE (11:04)
[2019-09-06] MEDS ORDERED: Mannitol 20% 100 GM/500 ML IV.SOLN IVC ONE (11:05)
[2019-09-06] MEDS ORDERED: EPHEDrine 50 MG/ML VIAL ONE (12:14)
[2019-09-06] MEDS ORDERED: Mannitol 25% vial 12.5 GM/50 ML VIAL IVP ONE (13:00)
[2019-09-06] MEDS: ceFAZolin 2,000 MG in 0.9 % Sodium Chloride 100 ML IVPB ONE ×2 (17:13→18:04)
[2019-09-06] MEDS: *HR* HYDROmorphone PF 0.5 MG/0.5 ML SYRINGE IVP PRN ×3 (17:14→17:36)
[2019-09-06] MEDS ORDERED: Naloxone 0.4 MG/ML INJ IVP PRN (18:05)
[2019-09-06] MEDS ORDERED: Ondansetron 4 MG/2 ML VIAL IVP PRN (18:05)
[2019-09-06] MEDS ORDERED: *HR* OxyCODONE/APAP 5/325 TABLET PO PRN (18:05)
[2019-09-06] MEDS ORDERED: Acetaminophen 325 MG TABLET PO PRN (18:05)
[2019-09-06] MEDS ORDERED: SUMAtriptan succinate 50 MG TABLET PO PRN (18:05)
[2019-09-06] MEDS: Gabapentin 400 MG CAPSULE PO SCH (20:37)
[2019-09-06] MEDS: CeFAZolin 2 GM/120 ML BAG IVPB SCH (20:38)
[2019-09-06] MEDS: 0.9 % Sodium Chloride 1,000 ML IVC SCH (20:39)
[2019-09-07 02:06] LABS: Hematocrit 35.2 % (35.3-44.9); Mean Corpuscular HGB Conc 30.7 g/dL (31.6-35.5); Mean Corpuscular Hemoglobin 28.4 pg (28.0-33.3); Mean Corpuscular Volume 92.6 fL (83.0-100.0); Platelet Count 284 K/mcL (140-400); Red Cell Distribution Width 14.3 % (11.5-14.5); Segmented Neutrophils % 91.7 %
[2019-09-07 02:07] LABS: Basophils % 0.1 %; Immature Granulocytes % 0.4 % (0-4); Lymphocytes # 0.5 K/mcL (0.6-4.6); Lymphocytes % 3.7 %; Monocytes # 0.6 K/mcL (0.0-1.3); Monocytes % 4.1 %
[2019-09-07 02:11] LABS: Hemoglobin 10.8 g/dL (11.5-15.4); White Blood Count 14.2 K/mcL (4.3-11.1)
[2019-09-07 02:23] LABS: Calcium 8.1 mg/dL (8.6-10.3); Potassium 4.6 mEq/L (3.5-5.1)
[2019-09-07] MEDS: CeFAZolin 2 GM/120 ML BAG IVPB SCH (03:27)
[2019-09-07] MEDS: 0.9 % Sodium Chloride 1,000 ML IVC SCH ×3 (05:50→21:28)
[2019-09-07] MEDS: Gabapentin 400 MG CAPSULE PO SCH ×2 (07:16→21:27)
[2019-09-07] MEDS: FLUoxetine 20 MG CAPSULE PO SCH (07:17)
[2019-09-07] MEDS ORDERED: Ondansetron 4 MG/2 ML VIAL IVP PRN (08:24)
[2019-09-08] MEDS: 0.9 % Sodium Chloride 1,000 ML IVC SCH (05:22)
[2019-09-08 07:41] LABS: Calcium 8.2 mg/dL (8.6-10.3); Potassium 4.1 mEq/L (3.5-5.1)
[2019-09-08] MEDS: Gabapentin 400 MG CAPSULE PO SCH ×2 (08:14→21:14)
[2019-09-08] MEDS: FLUoxetine 20 MG CAPSULE PO SCH (08:14)
[2019-09-08 09:03] LABS: Hematocrit 30.8 % (35.3-44.9); Hemoglobin 9.5 g/dL (11.5-15.4); Lymphocytes # 1.4 K/mcL (0.6-4.6); Mean Corpuscular HGB Conc 30.8 g/dL (31.6-35.5); Mean Corpuscular Hemoglobin 28.9 pg (28.0-33.3); Mean Corpuscular Volume 93.6 fL (83.0-100.0); Mean Platelet Volume 10.8 fL (9.4-12.4); Platelet Count 260 K/mcL (140-400); Red Blood Count 3.29 M/mcL (3.82-4.97); Red Cell Distribution Width 14.9 % (11.5-14.5); White Blood Count 10.1 K/mcL (4.3-11.1)
[2019-09-08 09:06] LABS: Monocytes # 1.2 K/mcL (0.0-1.3); Neutrophils # 7.5 K/mcL (1.6-8.9); Platelet Estimate Normal (Normal)
[2019-09-09 05:41] LABS: Hematocrit 30.1 % (35.3-44.9); Hemoglobin 9.1 g/dL (11.5-15.4); Mean Corpuscular HGB Conc 30.2 g/dL (31.6-35.5); Mean Corpuscular Volume 95.9 fL (83.0-100.0); Mean Platelet Volume 10.3 fL (9.4-12.4); Platelet Count 197 K/mcL (140-400); Red Blood Count 3.14 M/mcL (3.82-4.97); White Blood Count 7.1 K/mcL (4.3-11.1)
[2019-09-09 05:58] LABS: Calcium 8.7 mg/dL (8.6-10.3); Potassium 4.3 mEq/L (3.5-5.1)
[2019-09-09] MEDS: FLUoxetine 20 MG CAPSULE PO SCH (09:11)
[2019-09-09] MEDS: Gabapentin 400 MG CAPSULE PO SCH (09:11)
[2019-09-09 10:08] VITALS: BP 148/78
== END 2019-09-09 15:22 | disposition home health service (06) | DRG 657 ==
LOC: SAMDAY 08:47 → 3ANU 08:47
PROVIDERS: ADMIT Urology; ATTEND Urology